=== PATIENT | female | born 1945 | race Caucasian/White ===

== ENCOUNTER 2021-09-15 09:14 | Observation (INO) | payer MEDICARE ==
[2021-09-04 12:28] VITALS: BMI 25.4
[~2021-09-15 09:14] MED LIST: Lidocaine 1% MPF 2 ML VIAL ONE
[2021-09-15] MEDS ORDERED: PHENYLEPHRINE-NS 100 MCG/ML 10 ML SYRINGE ONE (10:17)
[2021-09-15] MEDS ORDERED: Fentanyl 100 MCG/2 ML VIAL ONE (10:17)
[2021-09-15] MEDS ORDERED: Dexamethasone 4 mg/ml Vial ONE (10:17)
[2021-09-15] MEDS ORDERED: Metoclopramide HCl 10 MG/2 ML VIAL ONE (10:17)
[2021-09-15] MEDS ORDERED: Ondansetron PF 4 MG/2 ML Vial ONE (10:17)
[2021-09-15] MEDS ORDERED: PROPOFOL 20 ML ONE (10:17)
[2021-09-15] MEDS ORDERED: Lidocaine 2% PF 5 ML VIAL ONE (10:18)
[2021-09-15 10:20] LABS: Anion Gap 14 mmol/L (10-20); BUN (Urea Nitrogen) 15 mg/dL (9.8-20.1); Calc. Creatinine Clearance 44 mL/min (70-130); Calcium 10.4 mg/dL (7.8-10.44); Carbon Dioxide 27 mmol/L (23-31); Chloride 103 mmol/L (98-107); Glucose 196 mg/dL (83-110); Potassium 4.5 mmol/L (3.5-5.1); Sodium 139 mmol/L (136-145)
[2021-09-15] MEDS ORDERED: Famotidine/PF 20 mg/2ml Vial ONE (10:22)
[2021-09-15] MEDS ORDERED: CEFAZOLIN 1 GM VIAL ONE (11:00)
[2021-09-15 11:03] LABS: Hemoglobin 14.8 g/dL (12.0-15.5)
[2021-09-15] MEDS ORDERED: Glycopyrrolate 0.2 MG/ML 5 ML SYRINGE ONE (11:25)
[2021-09-15] MEDS ORDERED: ePHEDrine Sulfate 50 MG/10 ML VIAL ONE (11:25)
[2021-09-15] MEDS ORDERED: Ketorolac Tromethamine 30 MG/ML VIAL ONE (11:32)
[2021-09-15] MEDS ORDERED: Lidocaine 1% w/Epinephrine 1:100K 20 ML VIAL ONE (11:38)
[2021-09-15] MEDS ORDERED: Metoprolol Tartrate 5 MG/5 ML VIAL ONE (12:31)
[2021-09-15] MEDS ORDERED: hydrALAZINE 20 MG/ML VIAL SLOW IVP PRN (13:21)
[2021-09-15] MEDS ORDERED: Ondansetron PF 4 MG/2 ML Vial IVP PRN (14:22)
[2021-09-15] MEDS ORDERED: Acetaminophen 325 MG TAB PO PRN (14:22)
[2021-09-15] MEDS ORDERED: Dextrose 50% Abboject 50 ML SYRINGE SLOW IVP PRN (14:26)
[2021-09-15] MEDS ORDERED: Dextrose 5% in Water 1,000 ML IV PRN (14:26)
[2021-09-15] MEDS ORDERED: Sodium Chloride 0.9% 1,000 ML IV SCH (14:30)
[2021-09-15 14:50] LABS: Magnesium 1.7 mg/dL (1.6-2.6)
[2021-09-15] MEDS: Metoprolol Tartrate 25 MG TAB PO SCH (20:21)
[2021-09-15] MEDS: HumaLOG 300 UNITS/3 ML VIAL SC PRN (20:25)
[2021-09-16 04:25] LABS: #Monocytes 0.5 10x3/uL (0.0-1.1); #Neutrophils 6.3 10x3/uL (1.5-8.4); %Lymphocytes 15.9 % (18.0-47.0); %Monocytes 6.7 % (0.0-10.0); %Neutrophils 77.2 % (40.0-75.0); Hemoglobin 12.5 g/dL (12.0-15.5); Mean Corpuscular HGB CONC 33.9 g/dL (32.0-36.0); Mean Corpuscular Hemoglobin 31.2 pg (27.0-33.0); Mean Platelet Volume 9.9 fl (7.4-10.4); Platelet Count 222 10x3/uL (150-450); RBC Distribution Width 12.9 % (11.5-14.5); Red Blood Cell (RBC) Count 4.01 10x6/uL (3.90-5.03); White Blood Cell (WBC) Count 8.1 10x3/uL (3.5-10.5)
[2021-09-16 04:36] LABS: Anion Gap 14 mmol/L (10-20); BUN (Urea Nitrogen) 20 mg/dL (9.8-20.1); Calc. Creatinine Clearance 40 mL/min (70-130); Carbon Dioxide 28 mmol/L (23-31); Chloride 104 mmol/L (98-107); Glucose 311 mg/dL (83-110); Potassium 5.5 mmol/L (3.5-5.1); Sodium 140 mmol/L (136-145)
[2021-09-16] MEDS: HumaLOG 300 UNITS/3 ML VIAL SC PRN (05:12)
[2021-09-16] MEDS ORDERED: LOKELMA 10 GM PACKET PO SCH (08:00)
[2021-09-16] MEDS ORDERED: Magnesium Sulfate 4 GM in Sodium Chloride 0.9% 250 ML 250 ML IVPB SCH (08:15)
[2021-09-16] MEDS: Metoprolol Tartrate 25 MG TAB PO SCH (08:52)
[2021-09-16] MEDS: Magnesium 2 GM/50 ML 2 GM in Premix Bag 1 BAG IVPB SCH ×2 (08:52→11:19)
[2021-09-16] MEDS ORDERED: Lisinopril 20 MG TAB PO SCH (09:00)
[2021-09-16 12:57] VITALS: BP 109/59; TEMP 96
[2021-09-16] MEDS ORDERED: Apixaban 5 MG TAB PO SCH ×3 (15:00→21:00)
[2021-09-17] MEDS ORDERED: Apixaban 5 MG TAB PO SCH (09:00)
== END 2021-09-16 16:27 | disposition home or self-care (01) ==
LOC: CSHSDC 09:14 → CSHTELE 17:57
PROVIDERS: ADMIT Internal Medicine; ATTEND Internal Medicine
PROC: 0GBN0ZZ Excision of Right Inferior Parathyroid Gland, Open Approach (ICD-10-PCS; principal; 2021-09-15)
DX: D35.1 Benign neoplasm of parathyroid gland (principal); E21.0 Primary hyperparathyroidism; I48.91 Unspecified atrial fibrillation; I10 Essential (primary) hypertension; E11.9 Type 2 diabetes mellitus without complications
CPT/HCPCS: 36415; 36416; 80048; 83735; 83970; 84443; 85014; 85018; 85025; 88305; 88331; 88334; 93005; 93010; 93306; 96374; 96376; G0378; J0690; J1100; J1815; J1885; J2001; J2405; J2704; J2765; J3010; J3475; J7050; S0028